=== PATIENT | female | born 1990 | race Caucasian/White ===

== ENCOUNTER 2023-07-05 23:17 | Inpatient (IN) | payer SELFPAY ==
[2023-07-05] MEDS ORDERED: Methylergonovine 0.2 MG/1 ML Amp IM PRN (23:37)
[2023-07-05] MEDS ORDERED: Sodium Chloride 0.9% 10 ML Syringe FLUSH PRN (23:37)
[2023-07-05] MEDS ORDERED: Tranexamic Acid IN NACL,ISO-OS 1,000 MG in Premix Bag 1 BAG IV PRN (23:37)
[2023-07-05] MEDS ORDERED: Carboprost Tromethamine 250 MCG/1 mL Vial IM PRN (23:37)
[2023-07-05] MEDS ORDERED: Butorphanol 2 MG/ML SDV IVPUSH PRN (23:37)
[2023-07-05] MEDS ORDERED: Misoprostol 200 MCG Tab PO PRN (23:37)
[2023-07-05] MEDS ORDERED: Lidocaine 1% 50 ML MDV INJECT PRN (23:37)
[2023-07-05] MEDS ORDERED: Sodium Chloride 0.9% 2.5 ML Syringe FLUSH PRN (23:37)
[2023-07-05] MEDS ORDERED: Water For Irrigation,Sterile 1,000 ML Container IRR PRN (23:37)
[2023-07-05] MEDS ORDERED: Sodium Chloride 0.9% 20 ML SDV IV PRN (23:37)
[2023-07-05] MEDS ORDERED: fentaNYL 100 MCG/2 ML SDV IVPUSH PRN (23:39)
[2023-07-05] MEDS ORDERED: Oxytocin/0.9 % Sodium Chloride 30 UNIT/500 ML BAG IV SCH (23:45)
[2023-07-05] MEDS: Lactated Ringers 1,000 ML IV SCH (23:45)
[2023-07-06 00:07] LABS: HEMATOCRIT 37.6 % (37.0-47.0); HEMOGLOBIN 12.4 g/dL (12.0-16.0); MEAN CORPUSCULAR HEMOGLOBIN 27.4 pg (28.0-32.0); MEAN PLATELET VOLUME 11.5 fL (9.4-12.3); PLATELET COUNT,PLT 195 K/uL (150-400); RED BLOOD CELL COUNT 4.53 M/uL (4.10-5.30); WHITE BLOOD CELL COUNT,WBC 13.16 K/uL (3.9-11.3)
[2023-07-06] MEDS ORDERED: Phenylephrine HCl 0.5 MG/5 ML AMP ONE (00:16)
[2023-07-06] MEDS ORDERED: Bupivacaine 0.25% 10 ML SDV ONE (00:16)
[2023-07-06] MEDS ORDERED: dexmedeTOMIDine HCl 200 MCG/2 ML SDV ONE (00:16)
[2023-07-06] MEDS ORDERED: Ropivacaine HCl/PF 200 ML ONE (00:16)
[2023-07-06] MEDS ORDERED: ePHEDrine 50 MG/ML SDV IVPUSH PRN ×2 (00:21)
[2023-07-06] MEDS ORDERED: Phenylephrine HCl In 0.9% NaCl 1 MG/10 ML Syringe IVPUSH PRN (00:21)
[2023-07-06] MEDS: Ropivacaine HCl/PF 400 MG in Premix Bag 1 BAG EPIDUR SCH (00:49)
[2023-07-06] MEDS ORDERED: Docusate Sodium 100 MG Cap PO PRN (05:10)
[2023-07-06] MEDS ORDERED: Carboprost Tromethamine 250 MCG/1 mL Vial IM PRN (05:10)
[2023-07-06] MEDS ORDERED: diphenhydrAMINE 50 MG Cap PO PRN (05:10)
[2023-07-06] MEDS ORDERED: Aluminum Hydroxide/Magnesium Hydroxide/Simethicone XS Susp 30 ML Cup PO PRN (05:10)
[2023-07-06] MEDS ORDERED: Witch Hazel Medicated Pads 40/Jar TOP PRN (05:10)
[2023-07-06] MEDS ORDERED: Methylergonovine 0.2 MG/1 ML Amp IM PRN (05:10)
[2023-07-06] MEDS ORDERED: Benzocaine/Menthol 20%-0.5% Spray 78 GM Cannister TOP PRN (05:10)
[2023-07-06] MEDS ORDERED: Ondansetron 4 MG/2 ML SDV IVPUSH PRN (05:10)
[2023-07-06] MEDS ORDERED: Misoprostol 200 MCG Tab RECTAL PRN (05:10)
[2023-07-06] MEDS ORDERED: Sennosides 8.6 MG Tab PO PRN (05:10)
[2023-07-06] MEDS ORDERED: Bisacodyl 10 MG Supp RECTAL PRN (05:10)
[2023-07-06] MEDS ORDERED: Sodium Chloride 0.9% 10 ML Syringe FLUSH PRN (05:10)
[2023-07-06] MEDS ORDERED: Sodium Chloride 0.9% 2.5 ML Syringe FLUSH PRN (05:10)
[2023-07-06] MEDS ORDERED: Acetaminophen 500 MG Tab PO PRN (05:10)
[2023-07-06] MEDS ORDERED: Oxytocin 10 Units/1 ML SDV IM PRN (05:10)
[2023-07-06] MEDS ORDERED: Simethicone 80 MG Tab.Chew PO PRN (05:10)
[2023-07-06] MEDS ORDERED: Tranexamic Acid IN NACL,ISO-OS 1,000 MG in Premix Bag 1 BAG IV PRN (05:10)
[2023-07-06] MEDS ORDERED: Famotidine 20 MG Tab PO PRN (05:10)
[2023-07-06] MEDS: Lanolin 100% Cream 7 GM Tube TOP PRN (10:37)
[2023-07-06] MEDS: Ibuprofen 800 MG Tab PO PRN (15:00)
== END 2023-07-07 15:58 | disposition home or self-care (01) | DRG 807 ==
LOC: MW.OBCHECK 23:17 → MW.OB 23:22 → MW.OBCHECK 23:37 → MW.OB 23:38 → OBSVTOIN 07-06 04:40 → MW.OB 07-06 09:21
PROVIDERS: ADMIT Obstetrics & Gynecology; ATTEND Obstetrics & Gynecology Obstetrics
PROC: 10E0XZZ Delivery of Products of Conception, External Approach (ICD-10-PCS; principal; 2023-07-06)
DX: O42.02 Full-term premature rupture of membranes, onset of labor within 24 hours of rupture (principal); Z37.0 Single live birth; Z3A.40 40 weeks gestation of pregnancy
CPT/HCPCS: 36415; 51702; 59025; 59409; 85027; 86592; 86850; 86900; 86901; A9270-GY; J2371; J2795; J3490; J7120